=== PATIENT | male | born 1970 | race Caucasian/White ===

== ENCOUNTER 2020-10-24 10:37 | Emergency (ER) | payer OTHER, BC, SELFPAY ==
--- NOTE | ~2020-10-24 | CT_ITS ---
EXAMINATION: CT soft tissue neck w con DATE: 10/24/2020 12:20 INDICATION: Left neck abscess. TECHNIQUE: Computed tomography (CT) of the neck was performed with 75 mL Omnipaque-350 intravenous co ntrast. Automated exposure control and iterative reconstruction technique were employed. The dose-chele gth product was 562.59 mGy-cm. COMPARISON: None FINDINGS: There is contrast in the left upper limb and chest veins that has not yet reached the aorta . There is enlargement of the palatine tonsils, left worse than right. There is thickening of left ar yepiglottic fold and left lateral pharyngeal wall. There are no pathologically enlarged lymph nodes. There is mild mucosal thickening in the paranasal sinuses. There is extensive dental disease. There i s mild cervical spondylosis. IMPRESSION: 1. Enlargement of the palatine tonsils and thickening of the left aryepiglottic fold and left lateral pharyngeal wall, consistent with phlegmon. No drainable fluid collection identified. 2. Extensive dental disease. Reviewed, dictated and finalized at location A. ERTY COORDINATOR
[2020-10-24 10:39] VITALS: BP 159/101; PULSE 81; RESP 18; TEMP 36.1; O2SAT 100
[2020-10-24 11:12] LABS: Basophils Percent Auto 0.4 % (0.2-1.2); Eosinophils Absolute Auto 0.1 K/mm3 (0-0.3); Eosinophils Percent Auto 1.2 % (0-4.4); Hematocrit 40.3 % (42.0-52.0); Hemoglobin 13.1 g/dL (14.0-18.0); Immature Granulocyte Absolute 0.02 K/mm3 (0.00-0.031); Immature Granulocyte Percent A 0.2 % (0-0.5); Lymphocytes Absolute Auto 1.67 K/mm3 (0.9-3.2); Lymphocytes Percent Auto 18.2 % (18.3-44.2); Mean Corpuscular HGB Conc 32.5 g/dl (32-36); Mean Corpuscular Hemoglobin 27.6 pg (26-34); Mean Corpuscular Volume 84.8 fl (80-100); Mean Platelet Volume 9.2 fl (7.4-10.4); Monocytes Absolute Auto 1.1 K/mm3 (0.1-0.6); Monocytes Percent Auto 12.4 % (2.6-8.5); Neutrophils Absolute Auto 6.2 K/mm3 (1.3-6.7); Neutrophils Percent Auto 67.6 % (45.5-73.1); Platelet Count Result 254 k/mm3 (150-375); Red Blood Count 4.75 M/mm3 (4.6-6.20); Red Cell Distribution Width 14.3 % (11.5-14.5); White Blood Count 9.2 K/mm3 (4.5-10.0)
[2020-10-24] MEDS: KETOROLAC 30 MG/ML VIAL (*BKC) IV PUSH (11:12)
[2020-10-24] MEDS: SODIUM CHLORIDE 0.9% IV 1,000 ML 999 ML IV CONT ×2 (11:12→13:55)
[2020-10-24] MEDS: DEXAMETHASONE SOD PHOS INJ 4 MG/ML VIAL 10 MG IV PUSH (11:13)
--- NOTE | 2020-10-24 11:18 | ED.GENADULT ---
HPI - General Adult General Chief complaint: Upper Respiratory Infection <Young Uribe PA-C - Last Filed: 10/24/20 14:01> Stated complaint: throat swelling <Young Uribe PA-C - Last Filed: 10/24/20 14:01> Time Seen by Provider: 10/24/20 10:45 <Young Uribe PA-C - Last Filed: 10/24/20 14:01> Source: patient <Young Uribe PA-C - Last Filed: 10/24/20 14:01> Mode of arrival: ambulatory <BENEDICTO Coello Last Filed: 10/24/20 14:01> Limitations: no limitations <Young Uribe PA-C - Last Filed: 10/24/20 14:01> History of Present Illness HPI narrative: Patient is a 50-year-old male who presents to emergency department for evaluation of left throat pain and swelling that has worsened over the last 3 days woke this morning feeling much worse patient notes some congestion rhinorrhea. Patient denies sick contacts has not been seen for this complaint. Pain is made worse with swallowing <Young Uribe PA-C - Last Filed: 10/24/20 14:01> Related Data Allergies/adverse reactions: Allergies Allergy/AdvReac Type Severity Reaction Status Date / Time No Known Allergies Allergy Verified 10/24/20 10:43 <Young Uribe PA-C - Last Filed: 10/24/20 14:01> Review of Systems Review of Systems: All systems reviewed & are unremarkable except as noted in HPI and below <Young Uribe PA-C - Last Filed: 10/24/20 14:01> [facility] Social History Social History: Social History (Updated 10/24/20 @ 11:19 by Young Uribe PA-C) Smoking status: Never smoker Gender identity (if verbalized by the patient): Male <BENEDICTO Coello Last Filed: 10/24/20 14:01> Exam Narrative: Exam Narrative: GENERAL: Well-appearing, well-nourished, and in no acute distress. HEAD: Normocephalic, atraumatic. EYES: PERRLA and EOMI. ENT: Nares clear, no rhinorrhea or epistaxis. Mucous membranes moist. Oropharynx with erythema hypertrophy on the left side slight deviation of the uvula, no trismus or drooling NECK: Supple. Anterior adenopathy noted CHEST: Clear to auscultation. No respiratory distress. No wheezes rales or rhonchi HEART: Regular rate and rhythm. No murmur heard. EXTREMITIES: Normal range of motion. No edema. SKIN: Warm, dry, no rash. NEURO: No focal deficits. Alert and oriented x3. PSYCH: Normal mood and affect. <BENEDICTO Coello Last Filed: 10/24/20 14:01> Course Course Emergency Course: Patient in the room at this time feeling much better with medications aware of recommendations with ENT and will follow in clinic tomorrow there was a phlegmon seen with no drainable abscess will be reevaluated tomorrow was given fluids steroids and antibiotics in the emergency department patient agrees with this plan patient is afebrile nontoxic-appearing no distress. Patient felt appropriate for outpatient reevaluation <BENEDICTO Coello Last Filed: 10/24/20 14:01> Consultations Consultation #1: Spoke with Dr. Cardeans who will follow the patient tomorrow in clinic <BENEDICTO Coello Last Filed: 10/24/20 14:01> Date: 10/24/20 <Young Uribe PA-C - Last Filed: 10/24/20 14:01> Time: 13:51 <BENEDICTO Coello Last Filed: 10/24/20 14:01> Vital Signs Vital signs: Vital Signs Temperature 97 F L 10/24/20 10:39 Pulse Rate 81 10/24/20 10:39 Respiratory Rate 18 10/24/20 10:39 Blood Pressure 159/101 H 10/24/20 10:39 Pulse Oximetry 100 10/24/20 10:39 Temperature 97 F L 10/24/20 10:39 Pulse Rate 80 10/24/20 14:39 Respiratory Rate 15 10/24/20 14:39 Blood Pressure 156/99 H 10/24/20 14:39 Pulse Oximetry 97 10/24/20 14:39 <BENEDICTO Coello Last Filed: 10/24/20 14:01> Vital Signs Temperature 97 F L 10/24/20 10:39 Pulse Rate 81 10/24/20 10:39 Respiratory Rate 18 10/24/20 10:39 Blood Pressure 159/101 H 10/24/20 10:39 Pulse Oximetry 100 10/24/20 10:3
[2020-10-24] MEDS: CLINDAMYCIN 900 MG/D5W 50 ML 900 MG/50 ML PIGGYBACK 50 MG IVPB (11:24)
[2020-10-24 12:00] VITALS: BP 149/81; PULSE 80; RESP 15; O2SAT 99
[2020-10-24 12:09] LABS: Anion Gap 6 mmol/L (8-16); Blood Urea Nitrogen 9 mg/dL (9-20); Calcium 8.5 mg/dL (8.4-10.2); Carbon Dioxide 29 mmol/L (22-30); Chloride 101 mmol/L (98-107); Estimated CRCL calculation 132 ml/min; Estimated Glomerular Filt Rate > 60; Glucose 97 mg/dL (75-110); Potassium 4.2 mmol/L (3.4-5.0); Sodium 136 mmol/L (137-145)
[2020-10-24 12:25] LABS: Estimated CRCL calculation 132 ml/min; Estimated Glomerular Filt Rate > 60
[2020-10-24 13:15] VITALS: BP 150/99; PULSE 83; RESP 14; O2SAT 97
[2020-10-24 14:39] VITALS: BP 156/99; PULSE 80; RESP 15; O2SAT 97
== END 2020-10-24 14:41 | disposition home or self-care (01) ==
PROVIDERS: Emergency Medicine Emergency Medical Services; Emergency Provider General Practice; PCP Physician Assistant
DX: J02.9 Acute pharyngitis, unspecified (principal)
CPT/HCPCS: 36415; 70491; 80048; 85025; 87081; 87147; 87880; 96361; 96365; 96375; 99284; J1100; J1885; J7030; Q9967